=== PATIENT | female | born 1995 | race Caucasian/White ===

== ENCOUNTER → 2018-10-12 | Outpatient (CLI) | payer BC, OTHER ==
--- NOTE | 2018-10-12 18:07 | Diagnostic Imaging Report ---
INDICATION: Lump in the right breast. Sonographic interrogation of the area of palpable abnormality was performed. There appears to be simple appearing cyst at the 3 o'clock location of the right breast corresponding to the palpable abnormality. This measures approximately 7 mm x 3 mm x 6 mm. Small cluster of cysts at 1 o'clock location is also seen in aggregate measuring approximately 7 mm x 4 mm x 9 mm. No solid masses are detected. IMPRESSION: Right breast cyst accounting for the palpable abnormality. No suspicious sonographic abnormality is detected. ACR BI-RADS Category 2: Benign findings. Dictated by: Dictated on workstation # [id number]
== END ==
LOC: RAD 14:22
PROVIDERS: ATTEND Nurse Practitioner Family
DX: N63.10 Unspecified lump in the right breast, unspecified quadrant (principal); N60.01 Solitary cyst of right breast